=== PATIENT | female | born 1965 | race Caucasian/White ===

== ENCOUNTER → 2016-09-12 | Outpatient (CLI) | payer OTHER | LOC: WI 07:35 | PROVIDERS: ATTEND Family Medicine | DX: Z12.31 Encounter for screening mammogram for malignant neoplasm of breast (principal) | CPT/HCPCS: 77067; G0202 ==

== ENCOUNTER → 2018-03-06 | Outpatient (CLI) | payer OTHER ==
--- NOTE | 2018-03-06 18:10 | RADIOLOGY REPORT (SQ) ---
EXAM DESCRIPTION: U/S NON OB PEL TV W/DOPPLER COMPLETED DATE/TIME: 03/06/2018 5:50 pm REASON FOR STUDY: D25.9 LEIOMYOMA OF UTERUS, UNSPECIFIED D25.9 LEIOMYOMA OF UTERUS, UNSPECIFIED LMP 03/02/2018 COMPARISON: None. TECHNIQUE: Dynamic and static grayscale images acquired of the pelvis via transvaginal approach and recorded on PACS. Additional selected color Doppler and spectral images recorded. LIMITATIONS: None. FINDINGS: UTERUS: Multiple uterine fibroids. The largest measures 5.9 x 4.5 x 6.2 cm. ENDOMETRIAL STRIPE: Endometrium not seen. CERVIX: 4.2 cm. No nabothian cysts. RIGHT OVARY AND DOPPLER: Ovary not seen. LEFT OVARY AND DOPPLER: Ovary not seen. FREE FLUID: None noted. OTHER: No other significant finding. MEASUREMENTS: UTERUS: 14.7 x 8.4 x 7.7 cm. ENDOMETRIAL STRIPE: Not seen. RIGHT OVARY: Not seen. LEFT OVARY: Not seen. IMPRESSION: Uterine fibroids as described. TECHNICAL DOCUMENTATION: JOB ID: [id number] [employer]- All Rights Reserved Rev-10/04 Reading location - IP/workstation name: [email or web address]
== END ==
LOC: RAD 17:37
PROVIDERS: ATTEND Family Medicine
DX: D25.9 Leiomyoma of uterus, unspecified (principal)
CPT/HCPCS: 76830; 93976

== ENCOUNTER 2018-05-30 05:49 | Day surgery (SDC) | payer OTHER ==
--- NOTE | 2018-05-28 12:41 | RADIOLOGY REPORT (SQ) ---
EXAM DESCRIPTION: CHEST PA/LATERAL COMPLETED DATE/TIME: 05/28/2018 12:30 pm REASON FOR STUDY: PRE-OP COMPARISON: None. EXAM PARAMETERS: NUMBER OF VIEWS: two views TECHNIQUE: Digital Frontal and Lateral radiographic views of the chest acquired. RADIATION DOSE: NA LIMITATIONS: none FINDINGS: LUNGS AND PLEURA: No opacities, masses or pneumothorax. No pleural effusion. MEDIASTINUM AND HILAR STRUCTURES: No masses or contour abnormalities. HEART AND VASCULAR STRUCTURES: Heart normal size. No evidence for failure. BONES: No acute findings. HARDWARE: None in the chest. OTHER: No other significant finding. IMPRESSION: NO SIGNIFICANT RADIOGRAPHIC FINDING IN THE CHEST. TECHNICAL DOCUMENTATION: JOB ID: [id number] [employer]- All Rights Reserved Reading location - IP/workstation name: [email or web address]
[2018-05-28 13:24] LABS: HEMATOCRIT 38.2 % (36.0-47.0); HEMOGLOBIN 12.8 g/dL (12.0-15.5); MEAN CORPUSCULAR HEMOGLOBIN 27.2 pg (27.0-33.4); MEAN CORPUSCULAR HGB CONC 33.4 g/dL (32.0-36.0); MEAN CORPUSCULAR VOLUME 81 fl (80-97); PLATELET COUNT 425 10^3/uL (150-450); RED BLOOD COUNT 4.69 10^6/uL (3.72-5.28); RED CELL DISTRIBUTION WIDTH 13.9 % (11.5-14.0); WHITE BLOOD COUNT 7.1 10^3/uL (4.0-10.5)
[2018-05-28 13:42] LABS: ANION GAP 7 (5-19); BLOOD UREA NITROGEN 13 mg/dL (7-20); CALCIUM 9.6 mg/dL (8.4-10.2); CARBON DIOXIDE 30 mmol/L (22-30); CHLORIDE 100 mmol/L (98-107); GLUCOSE 91 mg/dL (75-110); SODIUM 137.2 mmol/L (137-145)
[2018-05-28 13:51] LABS: APPEARANCE,URINE SLIGHTLY-CLOUDY; BILIRUBIN,URINE NEGATIVE (NEGATIVE); COLOR,URINE YELLOW; GLUCOSE, URINE NEGATIVE (NEGATIVE); KETONES,URINE NEGATIVE (NEGATIVE); LEUKOCYTE ESTERASE,URINE NEGATIVE (NEGATIVE); NITRITE,URINE NEGATIVE (NEGATIVE); PROTEIN,URINE NEGATIVE (NEGATIVE); URINE SPECIFIC GRAVITY 1.021; UROBILINOGEN,URINE NEGATIVE mg/dL (<2.0)
--- NOTE | 2018-05-28 15:51 | EKG REPORT ---
SEVERITY:- NORMAL ECG - SINUS RHYTHM : Confirmed by: Siddhartha Bullard MD 28-May-2018 15:49:51
[~2018-05-30 05:49] MED LIST: CEFAZOLIN 1 GM/D5W RTU 1 GM/50 ML RTUPB IV ONE; CEFAZOLIN 1 GM/D5W RTU 1 GM/50 ML RTUPB IV PRN; LACTATED RINGERS 1000 ML IV PRN; LIDOCAINE 0.5% INJ-PF (5 MG/ML) 50 ML SDV SUBCUT PRN
[2018-05-30] MEDS ORDERED: LIDOCAINE 1% INJ-PF (10 MG/ML) 30 ML SDV ONE (07:55)
[2018-05-30] MEDS ORDERED: MIDAZOLAM 2 MG/2 ML INJ ONE (07:56)
[2018-05-30] MEDS ORDERED: FENTANYL CITRATE INJ/PF 100 MCG/2 ML AMPUL ONE (07:56)
[2018-05-30] MEDS ORDERED: PROPOFOL INJ 200 MG/20 ML VIAL IV ONE (07:57)
[2018-05-30] MEDS ORDERED: ACETAMINOPHEN 1,000 MG/100 ML RTUPB IV ONE (07:57)
[2018-05-30] MEDS ORDERED: ONDANSETRON HCL INJ/PF 4 MG/2 ML SDV ONE (07:57)
[2018-05-30] MEDS ORDERED: OXYCODONE-ACETAMINOPHEN 5-325 MG TABLET PO PRN (09:03)
[2018-05-30] MEDS ORDERED: MORPHINE SULFATE 10 MG/ML INJ INJ PRN (09:04)
[2018-05-30] MEDS ORDERED: PROMETHAZINE HCL INJ 25 MG/1 ML VIAL IM PRN (09:05)
[2018-05-30 09:50] VITALS: BP 122/70
[2018-05-30] MEDS ORDERED: IBUPROFEN 800 MG TABLET PO SCH (10:00)
--- NOTE | 2018-05-30 23:27 | OPERATIVE REPORT E ---
Operative Report NAME: BRITTANY BERG : 1965 AGE: 53Y DATE OF SURGERY: 05/30/2018 ROOM: PREOPERATIVE DIAGNOSIS: Menorrhagia, uterine leiomyoma. POSTOPERATIVE DIAGNOSIS: Menorrhagia, uterine leiomyoma. OPERATION: Hysteroscopy, dilatation and curettage. SURGEON: AMNA MARTINEZ M.D. ANESTHESIA: LMAC, paracervical block. COMPLICATIONS: None. FINDINGS: A large, normal endometrial cavity. No endometrial polyps or lesions were appreciated. A small amount of tissue was obtained via curettage. EUA demonstrated an approximately 16-week size uterus. No adnexal masses appreciated. Exam limited somewhat by the patient's size. INDICATIONS FOR PROCEDURE: The patient's outpatient biopsy was unsuccessful due to a stenotic cervix. She was brought in for endometrial biopsy in preparation for a hysterectomy next month. The usual risks of bleeding, infection, anesthesia, and damage to organs or tissues have been discussed with the patient who understood. PROCEDURE: The patient was taken to the operating room and placed in the modified lithotomy position after adequate anesthesia was ascertained, prepped and draped in the usual manner for a hysteroscopy. The bladder was left undrained. Surgical time out was performed, antibiotics had been given. The cervix was infiltrated with 1% lidocaine, approximately 8 mL, for a paracervical block. Cervical os was identified and gently dilated to admit into the endometrial cavity. With no findings appreciated, endometrial curettage followed. Uterus sounded to approximately 12 cm. At completion of the procedure all instruments were removed. The patient was taken to the recovery room in stable condition. DICTATING PHYSICIAN: AMNA MARTINEZ M.D. [id number] PHY#: [id number] ID: [id number] JOB#: [id number] ACCT: [id number] cc:AMNA MARTINEZ M.D. >
== END 2018-05-30 09:45 | disposition home or self-care (01) ==
LOC: OROUT 05:49
PROVIDERS: ATTEND Specialist
DX: D25.1 Intramural leiomyoma of uterus (principal); N92.0 Excessive and frequent menstruation with regular cycle; N88.2 Stricture and stenosis of cervix uteri; I10 Essential (primary) hypertension; Z79.899 Other long term (current) drug therapy
CPT/HCPCS: 93005; 86900; 86901; 36415 ×2; 86850; 84132; 85027; 80048; 81001; 88305 ×2; 71046; 93010; 58558; J2250; J0690; J3010; J3490; J2405; J2704; J0131; 952

== ENCOUNTER 2018-07-15 05:17 | Inpatient (IN) | payer OTHER ==
[2018-07-11 11:40] LABS: HEMATOCRIT 37.3 % (36.0-47.0); HEMOGLOBIN 12.7 g/dL (12.0-15.5); MEAN CORPUSCULAR HEMOGLOBIN 27.2 pg (27.0-33.4); MEAN CORPUSCULAR VOLUME 80 fl (80-97); PLATELET COUNT 443 10^3/uL (150-450); RED BLOOD COUNT 4.66 10^6/uL (3.72-5.28); RED CELL DISTRIBUTION WIDTH 14.4 % (11.5-14.0); WHITE BLOOD COUNT 6.6 10^3/uL (4.0-10.5)
[2018-07-11 11:44] LABS: APPEARANCE,URINE SLIGHTLY-CLOUDY; BILIRUBIN,URINE NEGATIVE (NEGATIVE); COLOR,URINE YELLOW; GLUCOSE, URINE NEGATIVE (NEGATIVE); KETONES,URINE NEGATIVE (NEGATIVE); LEUKOCYTE ESTERASE,URINE TRACE (NEGATIVE); NITRITE,URINE NEGATIVE (NEGATIVE); PROTEIN,URINE NEGATIVE (NEGATIVE); URINE SPECIFIC GRAVITY 1.025; UROBILINOGEN,URINE NEGATIVE mg/dL (<2.0)
[2018-07-11 12:03] LABS: ANION GAP 9 (5-19); BLOOD UREA NITROGEN 13 mg/dL (7-20); CALCIUM 9.6 mg/dL (8.4-10.2); CARBON DIOXIDE 30 mmol/L (22-30); CHLORIDE 100 mmol/L (98-107); GLUCOSE 96 mg/dL (75-110); POTASSIUM 4.4 mmol/L (3.6-5.0); SODIUM 138.5 mmol/L (137-145)
--- NOTE | 2018-07-11 12:07 | RADIOLOGY REPORT (SQ) ---
EXAM DESCRIPTION: CHEST PA/LATERAL COMPLETED DATE/TIME: 07/11/2018 11:30 am REASON FOR STUDY: PRE-OP COMPARISON: 05/28/2018 EXAM PARAMETERS: NUMBER OF VIEWS: two views TECHNIQUE: Digital Frontal and Lateral radiographic views of the chest acquired. RADIATION DOSE: NA LIMITATIONS: none FINDINGS: LUNGS AND PLEURA: No opacities, masses or pneumothorax. No pleural effusion. MEDIASTINUM AND HILAR STRUCTURES: No masses or contour abnormalities. HEART AND VASCULAR STRUCTURES: Heart normal size. No evidence for failure. BONES: No acute findings. HARDWARE: None in the chest. OTHER: No other significant finding. IMPRESSION: 1. No significant interval changes since the prior examination dated 05/28/2018. No acut e findings. TECHNICAL DOCUMENTATION: JOB ID: [id number] [employer]- All Rights Reserved Reading location - IP/workstation name: [email or web address]
--- NOTE | 2018-07-11 13:10 | EKG REPORT ---
SEVERITY:- NORMAL ECG - SINUS RHYTHM : Confirmed by: Siddhartha Bullard MD 11-Jul-2018 13:09:48
[~2018-07-15 05:17] MED LIST changes: -CEFAZOLIN 1 GM/D5W RTU 1 GM/50 ML RTUPB IV ONE
[2018-07-15] MEDS ORDERED: CEFAZOLIN 1 GM/D5W RTU 1 GM/50 ML RTUPB IV ONE (05:19)
[2018-07-15] MEDS ORDERED: MIDAZOLAM 2 MG/2 ML INJ ONE (06:55)
[2018-07-15] MEDS ORDERED: FENTANYL CITRATE INJ/PF 100 MCG/2 ML AMPUL ONE (06:55)
[2018-07-15] MEDS ORDERED: HYDROMORPHONE HCL INJ/PF 2 MG/ML AMPULE ONE (06:56)
[2018-07-15] MEDS ORDERED: PROPOFOL INJ 200 MG/20 ML VIAL IV ONE (06:56)
[2018-07-15] MEDS ORDERED: ACETAMINOPHEN 1,000 MG/100 ML RTUPB IV ONE (06:56)
[2018-07-15] MEDS ORDERED: LIDOCAINE 2% INJ (20 MG/ML) 20 ML MDV ONE (06:57)
[2018-07-15] MEDS ORDERED: PROMETHAZINE HCL INJ 25 MG/1 ML VIAL IV PRN (07:49)
[2018-07-15] MEDS ORDERED: ONDANSETRON HCL INJ/PF 4 MG/2 ML SDV IV PRN (07:49)
[2018-07-15] MEDS ORDERED: DIPHENHYDRAMINE HCL 50 MG/ML VIAL IV PRN (07:49)
[2018-07-15] MEDS ORDERED: MEPERIDINE HCL/PF INJ 25 MG/1 ML DISP.SYRIN IV PRN (07:49)
[2018-07-15] MEDS ORDERED: MORPHINE SULFATE 10 MG/ML INJ IV PRN (07:49)
[2018-07-15] MEDS ORDERED: FENTANYL CITRATE INJ/PF 100 MCG/2 ML AMPUL IV PRN ×3 (07:49)
[2018-07-15] MEDS ORDERED: BUPIVACAINE INJ/PF LIPOSOME/PF 266 MG/20 ML SDV ONE (08:07)
--- NOTE | 2018-07-15 08:53 | OPERATIVE REPORT E ---
Operative Report NAME: BRITTANY BERG : 1965 AGE: 53Y DATE OF SURGERY: 07/15/2018 ROOM: OR PREOPERATIVE DIAGNOSIS: Uterine leiomyoma. POSTOPERATIVE DIAGNOSIS: Uterine leiomyoma. PROCEDURE: Supracervical hysterectomy and bilateral salpingectomy. SURGEON: AMNA MARTINEZ M.D. ANESTHESIA: General endotracheal. COMPLICATIONS: None. FINDINGS: An approximately 16 to 18 week size multi-fibroid uterus with extensive pelvic and bladder adhesions. Upper abdomen was palpated and normal. Normal tubes and ovaries were noted. INDICATIONS FOR PROCEDURE: The patient had symptomatic uterine leiomyoma. Outpatient biopsy was benign. She desired attempt at definitive therapy. She is status post multiple myomectomy in the past, and photographs were reviewed prior to this operation. The usual risks of bleeding, infection, anesthesia, and damage to organs and tissues had been discussed with the patient and understood. PROCEDURE: The patient was taken to the operating room and placed in the modified lithotomy position and after Whatley catheter inserted placed in supine position and prepped and draped in the usual manner for a hysterectomy. Through a midline incision extending through subcutaneous fat and fascia, the peritoneum was entered without difficulty and adhesions lysed. Abdominal contents were packed out of the pelvis and the uterus exteriorized. Round ligaments were identified, crossclamped, cut, suture ligated, and held. The utero-ovarian ligaments were bilaterally cauterized, extended to the level of the uterine vessels, and suture ligated at that point. The LigaSure Advance device was used during the bulk of the case, with exception of the uterine vessels. Due to the densely adherent adhesions present in the bladder and cervix area, and the goal of operation achieved, the uterus was amputated from the cervix. Tubes were removed separately from the ovaries. Ovaries were left in situ as they appeared normal. Good hemostasis was assured. The abdomen was copiously irrigated. The parietal peritoneum was noted to be dry. The fascia was closed with double-stranded PDS suture. Exparel was placed and the skin approximated with skin quincy. The patient tolerated the procedure well. All sponge and needle counts were correct. DICTATING PHYSICIAN: AMNA MARTINEZ M.D. [id number] PHY#: [id number] ID: [id number] JOB#: [id number] ACCT: [id number] cc:AMNA MARTINEZ M.D. >
[2018-07-15] MEDS ORDERED: ROCURONIUM BROMIDE INJ 50 MG/5 ML VIAL IV ONE (08:55)
[2018-07-15] MEDS ORDERED: KETOROLAC TROMETHAMINE 60 MG/2 ML SDV ONE (08:55)
[2018-07-15] MEDS ORDERED: SUCCINYLCHOLINE CHLORIDE INJ 200 MG/10 ML VIAL ONE (08:55)
[2018-07-15] MEDS ORDERED: DEXAMETHASONE SOD PHOSPHATE INJ 4 MG/1 ML VIAL ONE (08:55)
[2018-07-15] MEDS ORDERED: ONDANSETRON HCL INJ/PF 4 MG/2 ML SDV ONE (08:55)
[2018-07-15] MEDS ORDERED: OXYCODONE-ACETAMINOPHEN 5-325 MG TABLET PO PRN (10:30)
[2018-07-15] MEDS ORDERED: MORPHINE INJ 6 MG DOSE (EDIT ROUTE) INJ PRN (10:30)
[2018-07-15] MEDS ORDERED: MORPHINE INJ 4 MG DOSE (EDIT ROUTE) INJ PRN (10:30)
[2018-07-15] MEDS ORDERED: MORPHINE INJ 8 MG DOSE IM PRN (10:30)
[2018-07-15] MEDS ORDERED: PROMETHAZINE HCL INJ 25 MG/1 ML VIAL IM PRN (10:30)
[2018-07-15] MEDS: CEFAZOLIN 1 GM RTU (EDIT START TIME) IV SCH ×2 (12:49→17:43)
[2018-07-15] MEDS: IBUPROFEN 800 MG TABLET PO SCH ×2 (15:09→22:29)
[2018-07-15] MEDS ORDERED: HYDROCHLOROTHIAZIDE 25 MG TABLET PO SCH (22:00)
[2018-07-15] MEDS ORDERED: LOSARTAN POTASSIUM 50 MG TABLET PO SCH (22:00)
[2018-07-16] MEDS: IBUPROFEN 800 MG TABLET PO SCH (05:57)
[2018-07-16 06:42] LABS: HEMATOCRIT 32.4 % (36.0-47.0); HEMOGLOBIN 10.7 g/dL (12.0-15.5); MEAN CORPUSCULAR HEMOGLOBIN 26.6 pg (27.0-33.4); MEAN CORPUSCULAR VOLUME 81 fl (80-97); PLATELET COUNT 343 10^3/uL (150-450); RED BLOOD COUNT 4.02 10^6/uL (3.72-5.28); RED CELL DISTRIBUTION WIDTH 14.4 % (11.5-14.0); WHITE BLOOD COUNT 12.5 10^3/uL (4.0-10.5)
[2018-07-16 09:41] VITALS: BP 132/85
[2018-07-16] MEDS ORDERED: LOSARTAN POTASSIUM 50 MG TABLET PO SCH (10:00)
[2018-07-16] MEDS ORDERED: HYDROCHLOROTHIAZIDE 25 MG TABLET PO SCH (10:00)
--- NOTE | 2018-08-22 11:36 | DISCHARGE SUMMARY E ---
Discharge Summary NAME: BRITTANY BERG : 1965 AGE: 53Y ADMITTED: 07/15/2018 DISCHARGED: 07/16/2018 HISTORY: This is a 53-year-old female admitted for hysterectomy and DSO for symptomatic uterine leiomyoma. HOSPITAL COURSE: The patient admitted same-day surgery for a laparotomy for an 18-week size multi-fibroid uterus with pelvic adhesions. Tubes and ovaries were removed as well. Cervix was left in situ. The patient did well, ambulatory, regular diet, *------*, and discharged hospital day 1 doing well. FINAL DIAGNOSIS: Uterine leiomyoma. PROCEDURE: Supracervical hysterectomy and BSO. DICTATING PHYSICIAN: AMNA MARTINEZ M.D. [id number] PHY#: [id number] ID: [id number] JOB#: [id number] ACCT: [id number] cc:AMNA MARTINEZ M.D. >
== END 2018-07-16 09:55 | disposition home or self-care (01) | DRG 743 ==
LOC: INOR 05:17 → 2S 09:49
PROVIDERS: ADMIT Specialist; ATTEND Specialist
PROC: 0UT70ZZ Resection of Bilateral Fallopian Tubes, Open Approach (ICD-10-PCS; 2018-07-15)
PROC: 0UT90ZL Resection of Uterus, Supracervical, Open Approach (ICD-10-PCS; principal; 2018-07-15 07:15)
DX: D25.1 Intramural leiomyoma of uterus (principal); D25.2 Subserosal leiomyoma of uterus; I10 Essential (primary) hypertension; Z88.8 Allergy status to other drugs, medicaments and biological substances
CPT/HCPCS: 36415; 71046; 80048; 81001; 81025; 840; 84132; 85027; 86850; 86900; 86901; 88307; 93005; 93010; 94799; C9290; J0131; J0330; J0690; J1100; J1170; J1885; J2250; J2405; J2550; J2704; J3010; J3490

== ENCOUNTER → 2019-02-09 | Outpatient (CLI) | payer OTHER ==
--- NOTE | 2019-02-09 10:52 | WOMENS IMAGING REPORT ---
EXAM DESCRIPTION: BILAT SCREENING MAMMO W/CAD COMPLETED DATE/TIME: 02/09/2019 8:20 am REASON FOR STUDY: Z12.31 SCREENING MAMMO Z12.31 ENCNTR SCREEN MAMMOGRAM FOR MALIGNANT NEOPLASM OF B RE COMPARISON: 09/12/2016 and 08/19/2015. EXAM PARAMETERS: Standard craniocaudal and mediolateral oblique views of each breast recorded using digital acquisition. Read with the assistance of CAD. .[facility] - Animated Speech Neurosurgery Spine Physician Version 9.2 LIMITATIONS: None. FINDINGS: Findings present which are benign by mammographic criteria. No suspicious masses, calcifi cations or architectural distortion. Pertinent benign findings: Stable benign calcifications. Benign mammographic findings may include one or more of the following: Smooth masses, popcorn/rim/co arse calcifications, asymmetries, post-procedure changes, and lesions with long-standing stability. IMPRESSION: BENIGN MAMMOGRAPHIC FINDINGS. BIRADS 2 BREAST DENSITY: b. There are scattered areas of fibroglandular density. BIRAD: ASSESSMENT: 2 BENIGN FINDING(S) RECOMMENDATION: ROUTINE SCREENING COMMENT: The patient has been notified of the results by letter per SA requirements. Additional no tification policies are in place for contacting patient with suspicious or incomplete findings. Quality ID #225: The [employer] recommends an annual screening mammogram for women aged 40 years or over. This facility utilizes a reminder system to ensure that all patients receive reminder letters, and/or direct phone calls for appointments. This includes reminders for routine scr eening mammograms, diagnostic mammograms, or other Breast Imaging Interventions when appropriate. Th is patient will be placed in the appropriate reminder system. TECHNICAL DOCUMENTATION: FINDING NUMBER: (1) ASSESSMENT: (1) JOB ID: [id number] [employer]- All Rights Reserved Reading location - IP/workstation name: [email or web address]-[email or web address]
== END ==
LOC: WI 07:25
PROVIDERS: ATTEND Family Medicine
DX: Z12.31 Encounter for screening mammogram for malignant neoplasm of breast (principal)
CPT/HCPCS: 77067